=== PATIENT | female | born 1970 | race Caucasian/White ===

== ENCOUNTER 2022-04-13 14:29 | Emergency (ER) | payer BC ==
[~2022-04-13] VITALS: Ht 162.6 cm; Wt 68.0 kg
[2022-04-13] MEDS ORDERED: LISINOPRIL-HCT1 EAC2 PO (15:25)
[2022-04-13] MEDS ORDERED: DUI500 PO (19:56)
[2022-04-13] MEDS ORDERED: ZOFRAN8 MG PO (19:56)
[2022-04-13] MEDS ORDERED: MOTION SICKNESS25 M1 PO (19:56)
== END 2022-04-13 20:04 | disposition home or self-care (01) ==
LOC: ER 14:29
DX: R51.9 Headache, unspecified (principal); R42 Dizziness and giddiness; R11.0 Nausea; H66.91 Otitis media, unspecified, right ear; I10 Essential (primary) hypertension; Z91.018 Allergy to other foods